=== PATIENT | female | born 1985 | race Caucasian/White ===

== ENCOUNTER 2021-09-28 12:13 | Emergency (ER) | payer OTHER ==
[~2021-09-28] VITALS: Ht 167.6 cm; Wt 68.0 kg
[2021-09-28 14:18] LABS: URINE BILIRUBIN NEGATIVE (Negative); URINE BLOOD NEGATIVE (Negative); URINE CLARITY CLEAR; URINE COLOR YELLOW; URINE GLUCOSE-RANDOM NEGATIVE (Negative); URINE KETONES NEGATIVE (Negative); URINE LEUKOCYTES-REFLEX NEGATIVE (Negative); URINE NITRITE-REFLEX NEGATIVE (Negative); URINE PROTEIN NEGATIVE (Negative); URINE SPECIFIC GRAVITY <= 1.005 (1.005-1.030); URINE UROBILINOGEN 0.2 E.U./dl (0.2-1.0)
[2021-09-28] MEDS ORDERED: HYDROXYZINE HCL25 M2 PO (14:44)
[2021-09-28 14:56] VITALS: BP 125/79
--- NOTE | 2021-09-29 10:37 | EKG ---
[place] [address] ELECTROCARDIOGRAM REPORT Name: MICHELLE QUICK Room: [facility]#: [id number] Admission: 09/28/21 Attend Phys: Discharge: 09/28/21 Date of : 85 Date of Service: 09/28/21 1428 Report #: [id number] THIS REPORT FOR: //name// [facility] ED Test Date: 2021-09-28 Test Time: 14:28:02 Pat Name: MICHELLE QUICK Department: Room: Gender: F [place] Instructor: [facility] : 1985 Requested By: Pool Lee Order Number: [id number] MD: Surinder Mao Measurements Intervals [place] Rate: 90 P: 75 CO: 139 QRS: 65 QRSD: 75 T: 65 QT: 346 QTc: 424 Interpretive Statements Sinus rhythm Probable left atrial enlargement No previous ECG available for comparison Electronically Signed On 09-29-2021 10:37:11 [employer] by Surinder Mao [email or web address] <ELECTRONICALLY SIGNED> By: Joan Mao MD, [facility] 09/29/21 1037 1428 1428 Joan Mao MD, [facility] /EPI
== END 2021-09-28 14:57 | disposition home or self-care (01) ==
LOC: M.ERS 12:13
PROVIDERS: Physician Assistant
DX: R53.83 Other fatigue (principal)